=== PATIENT | female | born 1955 | race Caucasian/White ===

== ENCOUNTER 2020-12-04 05:48 | Inpatient (IN) | payer MEDICAID ==
[~2020-12-04] VITALS: Ht 160 cm; Wt 84.8 kg
--- NOTE | 2020-12-04 02:40 | NUR ---
Patient from [facility]- direct admit- I have received report from Rene LOVE and had the opportunity to ask questions and assume patient care. Addendum: 12/04/20 at 0617 by Zina Carranza RN pt coming via ambulance and estimated arrival is 3 hours from now at 0240
--- NOTE | 2020-12-04 05:55 | NUR ---
Pt arrived by EMS, transferred to the bed with slide board. Pt is alert to self, place, and situation. She is in no acute distress. She is on 15L via NRB at 91%. Vitals within normal limits; refer to vitals section. Paged Hospitalist consumer electronics merchandiser regarding orders due to pt being a direct admit. Pt is currently resting comfortably in bed with call light in reach.
[2020-12-04 06:00] VITALS: BP 122/67
--- NOTE | 2020-12-04 06:29 | NUR ---
Problems reprioritized. Patient report given, questions answered & plan of care reviewed with Norris LOVE.
[2020-12-04] MEDS ORDERED: PERFLUTREN PROTEIN-A MICROSPHR (Optison) 0.22 MG/ML 3ML VIAL IV ONE (08:30)
[2020-12-04] MEDS ORDERED: potassium Cl 20 mEq SR tablet PO PRN ×2 (08:30)
[2020-12-04] MEDS ORDERED: potassium Cl 40MEQ/1/2NS 520ml 520 ML IV PRN ×2 (08:30)
[2020-12-04] MEDS ORDERED: morphine 2 MG/ML inj. syringe IV PRN ×2 (08:30)
[2020-12-04] MEDS ORDERED: magnesium 2GM in 50ml NS 50 ML IV PRN (08:30)
[2020-12-04] MEDS ORDERED: mag hydrox/Alum hydrox/simeth 30ml oral suspension PO PRN (08:30)
[2020-12-04] MEDS ORDERED: bisacodyl 10mg suppository rectal RC PRN (08:30)
[2020-12-04] MEDS ORDERED: ondansetron/PF 4mg/2ml inj IV PRN (08:30)
[2020-12-04] MEDS ORDERED: heparin 10,000 units/1 ML INJ IV ONE ×2 (08:30→09:35)
[2020-12-04] MEDS ORDERED: magnesium 4gm in 100ml NS 100 ML IV PRN (08:30)
[2020-12-04 10:00] VITALS: BP 100/38
[2020-12-04 11:54] LABS: BASOPHILS % (AUTO) 0.1 % (0-1); EOSINOPHILS % (AUTO) 0 % (0-6); HEMATOCRIT 43.8 % (35.0-45.0); HEMOGLOBIN 14.1 g/dl (12.0-16.0); LYMPHOCYTES # (AUTO) 0.5 X10'3 (1.1-4.8); LYMPHOCYTES % (AUTO) 8.9 % (21-51); MEAN CORPUSCULAR HEMOGLOBIN 30.5 PG (27.0-31.0); MEAN CORPUSCULAR HGB CONC 32.2 g/dL (33.0-36.5); MEAN PLATELET VOLUME 8.4 FL (7.4-10.4); MONOCYTES # (AUTO) 0.3 X10'3 (0-0.9); MONOCYTES % (AUTO) 4.7 % (2-12); NEUTROPHILS # (AUTO) 5.2 X10'3 (1.8-7.7); NEUTROPHILS % (AUTO) 86.3 % (42-75); PLATELET COUNT 287 X10'3 (140-440); RED BLOOD COUNT 4.61 X10'6 (4.20-5.60); RED CELL DISTRIBUTION WIDTH 14.3 % (11.5-14.5); WHITE BLOOD COUNT 6.1 X10'3 (4.5-11.0)
[2020-12-04] MEDS: levoFLOXACIN-Levaquin 750MG/D5 150 ML IV SCH (12:19)
[2020-12-04] MEDS: heparin 25,000 UNIT/250ml bag 250 ML IV SCH (12:41)
[2020-12-04] MEDS: dexamethasone 4mg/ml inj IV SCH ×2 (12:42→19:45)
[2020-12-04] MEDS: normal saline 1000ml 1,000 ML IV SCH ×2 (12:44→18:30)
[2020-12-04 12:57] LABS: ALANINE AMINOTRANSFERASE 15 U/L (12-78); ALBUMIN 2.1 G/DL (3.4-5.0); ALBUMIN/GLOBULIN RATIO 0.5 (1.1-1.5); ALKALINE PHOSPHATASE 103 IU/L (46-116); ANION GAP 11 (8-16); ASPARTATE AMINO TRANSFERASE 16 U/L (10-37); BILIRUBIN,TOTAL 0.3 MG/DL (0.1-1.0); BLOOD UREA NITROGEN 12 MG/DL (7-18); BUN/CREATININE RATIO 17.1 (6.6-38.0); CALCIUM 8.1 MG/DL (8.5-10.1); CHLORIDE 109 MMOL/L (99-107); GLUCOSE 122 MG/DL (70-104); POTASSIUM 4.4 MMOL/L (3.5-5.1); SODIUM 144 MMOL/L (135-145); TOTAL CARBON DIOXIDE 24.1 MMOL/L (24-32); TOTAL PROTEIN 6.5 G/DL (6.4-8.2); eGFR 84 ML/MIN
[2020-12-04 13:02] LABS: TROPONIN I < 0.04 NG/ML (0.0-0.05)
[2020-12-04] MEDS ORDERED: LEVO75TA7 PO (13:33)
[2020-12-04] MEDS ORDERED: KETO5DRO11 EACHEYE (13:33)
[2020-12-04] MEDS ORDERED: AMIT-189 PO (13:33)
[2020-12-04] MEDS ORDERED: TOP100T PO (13:33)
[2020-12-04] MEDS ORDERED: FLUT16SP2 BOTHNARES (13:33)
[2020-12-04] MEDS ORDERED: ERGO500054 PO (13:33)
[2020-12-04] MEDS ORDERED: ACYC-128 PO (13:33)
[2020-12-04] MEDS ORDERED: GABA-530 PO (13:33)
[2020-12-04] MEDS ORDERED: PANT20TA18 PO (13:33)
[2020-12-04] MEDS ORDERED: AMIT100T61 PO (13:33)
[2020-12-04] MEDS ORDERED: ATEN25TA PO (13:33)
[2020-12-04] MEDS ORDERED: PROC10TA10 PO (13:33)
[2020-12-04] MEDS ORDERED: DIAZ5TAB5 PO (13:33)
[2020-12-04 14:00] VITALS: BP 105/45
[2020-12-04] MEDS: nicotine 21mg patch - 24 hr TD SCH (16:21)
[2020-12-04] MEDS ORDERED: proCHLORperazine 10mg tablet PO PRN (17:05)
[2020-12-04] MEDS ORDERED: gabapentin 100mg capsule PO PRN (17:05)
[2020-12-04 18:00] VITALS: BP 105/45
[2020-12-04] MEDS: docusate sod 100mg capsule PO SCH (19:46)
[2020-12-04] MEDS: lactobacillus rhamnosus 10,000 MMU CELLS/CAPSULE PO SCH (19:46)
[2020-12-04] MEDS: amitriptyline 50mg tablet PO SCH (19:48)
[2020-12-04] MEDS: K and/or MAG REPLACEMENT MC SCH (20:00)
[2020-12-04] MEDS: REMDESIVIR INJ 100 MG in normal saline 100ml IV soln 80 ML IV SCH (20:00)
[2020-12-04] MEDS ORDERED: non-formulary drug (Amitriptyline HCl 2 TAB) PO SCH (21:00)
[2020-12-04] MEDS: heparin 10,000 units/1 ML INJ IV PRN (21:29)
[2020-12-04 22:00] VITALS: BP 117/63
[2020-12-05] MEDS: heparin 25,000 UNIT/250ml bag 250 ML IV SCH ×2 (01:10→17:41)
[2020-12-05 02:01] VITALS: BP 112/65
[2020-12-05] MEDS: normal saline 1000ml 1,000 ML IV SCH ×2 (04:30→14:30)
[2020-12-05 04:59] LABS: BASOPHILS % (AUTO) 0.5 % (0-1); EOSINOPHILS % (AUTO) 0 % (0-6); HEMATOCRIT 43.6 % (35.0-45.0); HEMOGLOBIN 14.1 g/dl (12.0-16.0); LYMPHOCYTES # (AUTO) 0.7 X10'3 (1.1-4.8); LYMPHOCYTES % (AUTO) 7.8 % (21-51); MEAN CORPUSCULAR HEMOGLOBIN 30.4 PG (27.0-31.0); MEAN CORPUSCULAR HGB CONC 32.2 g/dL (33.0-36.5); MEAN CORPUSCULAR VOLUME 94.5 FL (78-98); MEAN PLATELET VOLUME 8.5 FL (7.4-10.4); MONOCYTES # (AUTO) 0.4 X10'3 (0-0.9); MONOCYTES % (AUTO) 4.2 % (2-12); NEUTROPHILS # (AUTO) 7.8 X10'3 (1.8-7.7); NEUTROPHILS % (AUTO) 87.5 % (42-75); PLATELET COUNT 322 X10'3 (140-440); RED BLOOD COUNT 4.61 X10'6 (4.20-5.60); RED CELL DISTRIBUTION WIDTH 14.4 % (11.5-14.5); WHITE BLOOD COUNT 8.9 X10'3 (4.5-11.0)
[2020-12-05 05:15] LABS: ALANINE AMINOTRANSFERASE 16 U/L (12-78); ALBUMIN/GLOBULIN RATIO 0.5 (1.1-1.5); ALKALINE PHOSPHATASE 97 IU/L (46-116); ANION GAP 11 (8-16); ASPARTATE AMINO TRANSFERASE 12 U/L (10-37); BILIRUBIN,TOTAL 0.2 MG/DL (0.1-1.0); BLOOD UREA NITROGEN 12 MG/DL (7-18); BUN/CREATININE RATIO 16.2 (6.6-38.0); C-REACTIVE PROTEIN 11.17 MG/DL (0.0-0.5); CALCIUM 8.2 MG/DL (8.5-10.1); CHLORIDE 111 MMOL/L (99-107); CREATININE 0.74 MG/DL (0.40-0.90); GLUCOSE 148 MG/DL (70-104); MAGNESIUM 2.5 MG/DL (1.5-2.4); SODIUM 147 MMOL/L (135-145); TOTAL PROTEIN 6.2 G/DL (6.4-8.2); eGFR 79 ML/MIN
[2020-12-05] MEDS: heparin 10,000 units/1 ML INJ IV PRN (05:50)
[2020-12-05 07:00] VITALS: BP 120/70
[2020-12-05] MEDS: dexamethasone 4mg/ml inj IV SCH ×2 (07:41→20:51)
[2020-12-05] MEDS: topiramate 100mg tablet PO SCH (07:41)
[2020-12-05] MEDS: docusate sod 100mg capsule PO SCH ×2 (07:41→20:50)
[2020-12-05] MEDS: lactobacillus rhamnosus 10,000 MMU CELLS/CAPSULE PO SCH ×2 (07:41→20:51)
[2020-12-05] MEDS: levoTHYROXINE 75mcg tablet PO SCH (07:41)
[2020-12-05] MEDS: pantoprazole 40mg Tablet.DR PO SCH (07:41)
[2020-12-05] MEDS: nicotine 21mg patch - 24 hr TD SCH (07:42)
[2020-12-05] MEDS: K and/or MAG REPLACEMENT MC SCH ×2 (08:00→20:00)
--- NOTE | 2020-12-05 08:03 | NUR ---
Malnutrition consult: Pt admitted w/ increasing SOB and transferred from another facility, noted to have Covid. Pt currently on EC7/Heart Healthy diet w/ 0% intake first meal though up to about 50% most recent third meal. Pt noted to be A&O x 1 and confused though able to feed self per documentation. No wounds or edema noted, no signs of muscle waisting per RN. At this time pt does not meet minimum criteria for malnutrition, will continue to monitor. Addendum: 12/05/20 at [address] Amended: Links added.
[2020-12-05 10:00] VITALS: BP 107/45
[2020-12-05] MEDS: fluticasone nasal spray 16GM bottle NS SCH (12:00)
[2020-12-05] MEDS: diazepam 5mg tablet PO PRN (13:18)
[2020-12-05] MEDS: acetaminophen 325mg tablet PO PRN (13:18)
[2020-12-05 14:00] VITALS: BP 112/53
[2020-12-05] MEDS: levoFLOXACIN-Levaquin 750MG/D5 150 ML IV SCH (14:00)
--- NOTE | 2020-12-05 16:56 | NUR ---
Pt rested comfortably throughout shift. Unable to obtain secondary IV access for patient after multiple attempts. MD made aware. IV abx changed to PO. Pt has L EJ that have Heparin infusing through.
[2020-12-05 18:00] VITALS: BP 125/99
--- NOTE | 2020-12-05 18:23 | NUR ---
Pt rested comfortably in room. Report provided to KATE Sabillon and Heparin gtt infusing at 2000 units/hr=20 ml/hr using the weight of 84.82 kg. Pt has therapeutic PTT and no rate adjustment needed throughout shift. Next PTT scheduled for 12/05/20 @ 18:30pm and RN is aware.
[2020-12-05 19:25] LABS: PARTIAL THROMBOPLASTIN TIME 111 SECONDS (22-32)
--- NOTE | 2020-12-05 19:30 | NUR ---
Notified MD of patient PTT level of 111 per protocol. Will continue to monitor.
[2020-12-05] MEDS: REMDESIVIR INJ 100 MG in normal saline 100ml IV soln 80 ML IV SCH (20:52)
[2020-12-05] MEDS: amitriptyline 50mg tablet PO SCH (21:25)
[2020-12-05 21:38] VITALS: BP 144/66
--- NOTE | 2020-12-05 23:09 | NUR ---
Multiple attempts to obtain PTT lab scheduled for 2129. Lab and dive supervisor not able to draw lab at this time. Will continue to attempt to draw labs.
[2020-12-06] MEDS: normal saline 1000ml 1,000 ML IV SCH (00:40)
[2020-12-06 02:00] VITALS: BP 148/71
--- NOTE | 2020-12-06 05:38 | NUR ---
PATIENT IN ROOM RESTING WITH EYES CLOSED AT THIS TIME. IVF INFUSING PER ORDER. VSS THROUGHOUT SHIFT. NO CURRENT COMPLAINTS OF DISCOMFORT AT THIS TIME. NO SIGNS OF DISTRESS NOTED. CALL LIGHT PLACED WITHIN REACH OF PATIENT. PATIENT INSTRUCTED TO CALL FOR ASSISTANCE. VITAL SIGNS AND ASSESSMENTS DOCUMENTED IN INTERVENTIONS. WILL CONTINUE TO MONITOR.
[2020-12-06 09:02] LABS: BASOPHILS % (AUTO) 0.3 % (0-1); EOSINOPHILS % (AUTO) 0.1 % (0-6); HEMOGLOBIN 12.9 g/dl (12.0-16.0); LYMPHOCYTES # (AUTO) 0.9 X10'3 (1.1-4.8); LYMPHOCYTES % (AUTO) 10.7 % (21-51); MEAN CORPUSCULAR HEMOGLOBIN 30.9 PG (27.0-31.0); MEAN CORPUSCULAR HGB CONC 33.2 g/dL (33.0-36.5); MEAN PLATELET VOLUME 8.8 FL (7.4-10.4); MONOCYTES # (AUTO) 0.5 X10'3 (0-0.9); MONOCYTES % (AUTO) 5.4 % (2-12); NEUTROPHILS # (AUTO) 7.4 X10'3 (1.8-7.7); NEUTROPHILS % (AUTO) 83.5 % (42-75); PLATELET COUNT 365 X10'3 (140-440); RED BLOOD COUNT 4.19 X10'6 (4.20-5.60); RED CELL DISTRIBUTION WIDTH 14.2 % (11.5-14.5); WHITE BLOOD COUNT 8.9 X10'3 (4.5-11.0)
[2020-12-06] MEDS: nicotine 21mg patch - 24 hr TD SCH (09:29)
[2020-12-06] MEDS: levoTHYROXINE 75mcg tablet PO SCH (09:29)
[2020-12-06] MEDS: docusate sod 100mg capsule PO SCH ×2 (09:29→20:07)
[2020-12-06] MEDS: topiramate 100mg tablet PO SCH (09:29)
[2020-12-06] MEDS: lactobacillus rhamnosus 10,000 MMU CELLS/CAPSULE PO SCH ×2 (09:29→20:07)
[2020-12-06] MEDS: atenolol 25mg tablet PO PRN (09:29)
[2020-12-06] MEDS: pantoprazole 40mg Tablet.DR PO SCH (09:29)
[2020-12-06] MEDS: dexamethasone 4mg/ml inj IV SCH ×2 (09:30→20:07)
[2020-12-06] MEDS: fluticasone nasal spray 16GM bottle NS SCH (09:30)
[2020-12-06 09:43] LABS: ALANINE AMINOTRANSFERASE 12 U/L (12-78); ALBUMIN 1.9 G/DL (3.4-5.0); ALBUMIN/GLOBULIN RATIO 0.5 (1.1-1.5); ALKALINE PHOSPHATASE 83 IU/L (46-116); ANION GAP 8 (8-16); ASPARTATE AMINO TRANSFERASE 15 U/L (10-37); BILIRUBIN,TOTAL 0.2 MG/DL (0.1-1.0); BLOOD UREA NITROGEN 15 MG/DL (7-18); BUN/CREATININE RATIO 22.1 (6.6-38.0); C-REACTIVE PROTEIN 5.21 MG/DL (0.0-0.5); CHLORIDE 112 MMOL/L (99-107); CREATININE 0.68 MG/DL (0.40-0.90); GLUCOSE 110 MG/DL (70-104); MAGNESIUM 2.5 MG/DL (1.5-2.4); POTASSIUM 4.2 MMOL/L (3.5-5.1); SODIUM 147 MMOL/L (135-145); TOTAL CARBON DIOXIDE 26.7 MMOL/L (24-32); TOTAL PROTEIN 5.6 G/DL (6.4-8.2); eGFR 87 ML/MIN
[2020-12-06 10:00] VITALS: BP 121/70
[2020-12-06] MEDS: K and/or MAG REPLACEMENT MC SCH ×3 (12:00→22:24)
[2020-12-06] MEDS: levoFLOXACIN 750MG TABLET PO SCH (12:25)
[2020-12-06] MEDS: heparin 25,000 UNIT/250ml bag 250 ML IV SCH ×2 (12:31→19:38)
[2020-12-06 17:30] LABS: PARTIAL THROMBOPLASTIN TIME 106 SECONDS (22-32)
[2020-12-06 18:00] VITALS: BP 120/63
[2020-12-06] MEDS: REMDESIVIR INJ 100 MG in normal saline 100ml IV soln 80 ML IV SCH (20:07)
[2020-12-06] MEDS: amitriptyline 50mg tablet PO SCH (20:07)
[2020-12-06 22:00] VITALS: BP 119/79
--- NOTE | 2020-12-06 22:29 | NUR ---
The ptt was 91 so the heparin was turned off for an hour then we will restart her heparin in an hour and decrease it as ordered per protocol.
[2020-12-07 02:00] VITALS: BP 131/71
[2020-12-07] MEDS: heparin 25,000 UNIT/250ml bag 250 ML IV SCH (03:10)
[2020-12-07 08:19] LABS: BASOPHILS % (AUTO) 0.3 % (0-1); EOSINOPHILS % (AUTO) 0.1 % (0-6); HEMATOCRIT 42.5 % (35.0-45.0); HEMOGLOBIN 14.1 g/dl (12.0-16.0); LYMPHOCYTES # (AUTO) 0.9 X10'3 (1.1-4.8); LYMPHOCYTES % (AUTO) 10.8 % (21-51); MEAN CORPUSCULAR HEMOGLOBIN 31.1 PG (27.0-31.0); MEAN CORPUSCULAR HGB CONC 33.2 g/dL (33.0-36.5); MEAN CORPUSCULAR VOLUME 93.7 FL (78-98); MONOCYTES # (AUTO) 0.5 X10'3 (0-0.9); MONOCYTES % (AUTO) 6.2 % (2-12); NEUTROPHILS # (AUTO) 6.8 X10'3 (1.8-7.7); NEUTROPHILS % (AUTO) 82.6 % (42-75); PLATELET COUNT 365 X10'3 (140-440); RED BLOOD COUNT 4.54 X10'6 (4.20-5.60); RED CELL DISTRIBUTION WIDTH 14.7 % (11.5-14.5); WHITE BLOOD COUNT 8.3 X10'3 (4.5-11.0)
[2020-12-07 08:53] LABS: ASPARTATE AMINO TRANSFERASE 19 U/L (10-37); BILIRUBIN,TOTAL 0.2 MG/DL (0.1-1.0); BLOOD UREA NITROGEN 15 MG/DL (7-18); BUN/CREATININE RATIO 19.2 (6.6-38.0); C-REACTIVE PROTEIN 4.19 MG/DL (0.0-0.5); CHLORIDE 107 MMOL/L (99-107); CREATININE 0.78 MG/DL (0.40-0.90); GLUCOSE 111 MG/DL (70-104); POTASSIUM 4.3 MMOL/L (3.5-5.1); eGFR 74 ML/MIN
[2020-12-07 08:54] LABS: ALANINE AMINOTRANSFERASE 15 U/L (12-78); ALBUMIN/GLOBULIN RATIO 0.5 (1.1-1.5); ALKALINE PHOSPHATASE 103 IU/L (46-116); ANION GAP 11 (8-16); CALCIUM 8.2 MG/DL (8.5-10.1); MAGNESIUM 2.4 MG/DL (1.5-2.4); SODIUM 141 MMOL/L (135-145); TOTAL CARBON DIOXIDE 23.4 MMOL/L (24-32)
[2020-12-07] MEDS: dexamethasone 4mg/ml inj IV SCH ×2 (09:23→20:13)
[2020-12-07] MEDS: nicotine 21mg patch - 24 hr TD SCH (09:24)
[2020-12-07] MEDS: topiramate 100mg tablet PO SCH (09:24)
[2020-12-07] MEDS: docusate sod 100mg capsule PO SCH ×2 (09:24→20:09)
[2020-12-07] MEDS: pantoprazole 40mg Tablet.DR PO SCH (09:24)
[2020-12-07] MEDS: levoTHYROXINE 75mcg tablet PO SCH (09:24)
[2020-12-07] MEDS: lactobacillus rhamnosus 10,000 MMU CELLS/CAPSULE PO SCH ×2 (09:25→20:09)
[2020-12-07] MEDS: K and/or MAG REPLACEMENT MC SCH ×2 (09:30→20:00)
[2020-12-07] MEDS: fluticasone nasal spray 16GM bottle NS SCH (09:30)
[2020-12-07 10:00] VITALS: BP 124/62
[2020-12-07] MEDS: levoFLOXACIN 750MG TABLET PO SCH (12:05)
[2020-12-07 13:13] LABS: PARTIAL THROMBOPLASTIN TIME 65 SECONDS (22-32)
[2020-12-07 18:00] VITALS: BP 119/60
[2020-12-07] MEDS: REMDESIVIR INJ 100 MG in normal saline 100ml IV soln 80 ML IV SCH (20:08)
[2020-12-07] MEDS: enoxaparin 80mg/0.8ml syringe SUBCUT SCH (20:23)
[2020-12-07] MEDS: amitriptyline 50mg tablet PO SCH (20:26)
--- NOTE | 2020-12-07 23:00 | NUR ---
Eye drops not available; pt instructed to ask her family member to bring her own medication from home. Pt verbalized understanding
[2020-12-07 23:50] VITALS: BP 111/64
[2020-12-08 02:00] VITALS: BP 125/76
--- NOTE | 2020-12-08 06:23 | NUR ---
Problems reprioritized. Patient report given, questions answered & plan of care reviewed with Ms. Pisano.
[2020-12-08 09:12] LABS: BASOPHILS % (AUTO) 0.4 % (0-1); EOSINOPHILS % (AUTO) 0.1 % (0-6); HEMATOCRIT 49.3 % (35.0-45.0); HEMOGLOBIN 16.2 g/dl (12.0-16.0); LYMPHOCYTES # (AUTO) 1.2 X10'3 (1.1-4.8); LYMPHOCYTES % (AUTO) 14.6 % (21-51); MEAN CORPUSCULAR HEMOGLOBIN 30.7 PG (27.0-31.0); MEAN CORPUSCULAR HGB CONC 32.8 g/dL (33.0-36.5); MEAN CORPUSCULAR VOLUME 93.6 FL (78-98); MEAN PLATELET VOLUME 8.7 FL (7.4-10.4); MONOCYTES # (AUTO) 0.4 X10'3 (0-0.9); MONOCYTES % (AUTO) 5.1 % (2-12); NEUTROPHILS # (AUTO) 6.6 X10'3 (1.8-7.7); NEUTROPHILS % (AUTO) 79.8 % (42-75); PLATELET COUNT 304 X10'3 (140-440); RED BLOOD COUNT 5.27 X10'6 (4.20-5.60); RED CELL DISTRIBUTION WIDTH 14.9 % (11.5-14.5); WHITE BLOOD COUNT 8.3 X10'3 (4.5-11.0)
--- NOTE | 2020-12-08 09:13 | NUR ---
Initial: Pt admitted w/ increasing SOB and noted to have Covid per EMR. Pt currently w/ 15L oxygen requirement. Pt able to eat moderately well on EC7/Heart Healthy diet, avg intake 58% by 9 meals meeting minimum nutrient needs at this time. No BM documented; TC to RN though unavailable; pt receiving routine colace. Recommend additional bowel care if pt has not had BM since admission. Pt may also benefit from diet liberalization to Regular if MD agreeable as no significant cardiac hx. Will continue to monitor. Recs: 1. Liberalize to Regular diet if MD agreeable 2. Routine bowel care 3. Scaled wt this admit; subsequent weekly wts Addendum: 12/08/20 at [address] Amended: Links added.
[2020-12-08 09:22] LABS: ALANINE AMINOTRANSFERASE 19 U/L (12-78); ALBUMIN 2.3 G/DL (3.4-5.0); ALBUMIN/GLOBULIN RATIO 0.5 (1.1-1.5); ALKALINE PHOSPHATASE 118 IU/L (46-116); ANION GAP 9 (8-16); ASPARTATE AMINO TRANSFERASE 21 U/L (10-37); BILIRUBIN,TOTAL 0.2 MG/DL (0.1-1.0); BLOOD UREA NITROGEN 18 MG/DL (7-18); BUN/CREATININE RATIO 21.4 (6.6-38.0); CALCIUM 9.1 MG/DL (8.5-10.1); CHLORIDE 108 MMOL/L (99-107); CREATININE 0.84 MG/DL (0.40-0.90); GLUCOSE 110 MG/DL (70-104); MAGNESIUM 2.5 MG/DL (1.5-2.4); POTASSIUM 4.9 MMOL/L (3.5-5.1); SODIUM 142 MMOL/L (135-145); TOTAL CARBON DIOXIDE 24.6 MMOL/L (24-32); TOTAL PROTEIN 6.6 G/DL (6.4-8.2); eGFR 68 ML/MIN
[2020-12-08 09:24] LABS: C-REACTIVE PROTEIN 3.11 MG/DL (0.0-0.5)
[2020-12-08] MEDS: topiramate 100mg tablet PO SCH (09:46)
[2020-12-08] MEDS: pantoprazole 40mg Tablet.DR PO SCH (09:47)
[2020-12-08] MEDS: levoTHYROXINE 75mcg tablet PO SCH (09:47)
[2020-12-08] MEDS: lactobacillus rhamnosus 10,000 MMU CELLS/CAPSULE PO SCH ×2 (09:47→19:43)
[2020-12-08] MEDS: atenolol 25mg tablet PO PRN (09:47)
[2020-12-08] MEDS: docusate sod 100mg capsule PO SCH ×2 (09:47→19:43)
[2020-12-08] MEDS: dexamethasone 4mg/ml inj IV SCH ×2 (09:48→19:44)
[2020-12-08] MEDS: nicotine 21mg patch - 24 hr TD SCH (09:48)
[2020-12-08] MEDS: enoxaparin 80mg/0.8ml syringe SUBCUT SCH ×2 (09:48→19:45)
[2020-12-08 10:00] VITALS: BP 112/65
[2020-12-08] MEDS: fluticasone nasal spray 16GM bottle NS SCH (11:00)
[2020-12-08] MEDS: K and/or MAG REPLACEMENT MC SCH ×2 (11:00→20:00)
[2020-12-08] MEDS: levoFLOXACIN 750MG TABLET PO SCH (13:36)
[2020-12-08 18:00] VITALS: BP 114/66
--- NOTE | 2020-12-08 18:30 | NUR ---
Patient in room ORTHO 4007. I have received report from KATE Garcia and had the opportunity to ask questions and assume patient care. Patient laying in bed, no obvious distress. She just finished dinner and has no complaints.
[2020-12-08] MEDS: amitriptyline 50mg tablet PO SCH (19:44)
[2020-12-08 22:00] VITALS: BP 110/63
[2020-12-08] MEDS: acetaminophen 325mg tablet PO PRN (22:08)
[2020-12-09 05:00] VITALS: BP 119/71
--- NOTE | 2020-12-09 06:08 | NUR ---
Problems reprioritized. Patient report given, questions answered & plan of care reviewed with KATE Garcia.
[2020-12-09 07:15] LABS: BASOPHILS % (AUTO) 0.4 % (0-1); EOSINOPHILS % (AUTO) 0.1 % (0-6); HEMATOCRIT 46.8 % (35.0-45.0); HEMOGLOBIN 15.4 g/dl (12.0-16.0); LYMPHOCYTES # (AUTO) 0.9 X10'3 (1.1-4.8); LYMPHOCYTES % (AUTO) 9.8 % (21-51); MEAN CORPUSCULAR HEMOGLOBIN 30.8 PG (27.0-31.0); MEAN CORPUSCULAR HGB CONC 32.8 g/dL (33.0-36.5); MEAN CORPUSCULAR VOLUME 93.9 FL (78-98); MEAN PLATELET VOLUME 8.7 FL (7.4-10.4); MONOCYTES # (AUTO) 0.6 X10'3 (0-0.9); MONOCYTES % (AUTO) 6.6 % (2-12); NEUTROPHILS # (AUTO) 7.3 X10'3 (1.8-7.7); NEUTROPHILS % (AUTO) 83.1 % (42-75); PLATELET COUNT 383 X10'3 (140-440); RED BLOOD COUNT 4.98 X10'6 (4.20-5.60); RED CELL DISTRIBUTION WIDTH 14.8 % (11.5-14.5); WHITE BLOOD COUNT 8.8 X10'3 (4.5-11.0)
[2020-12-09] MEDS: nicotine 21mg patch - 24 hr TD SCH (07:45)
[2020-12-09] MEDS: lactobacillus rhamnosus 10,000 MMU CELLS/CAPSULE PO SCH ×2 (07:45→20:17)
[2020-12-09] MEDS: docusate sod 100mg capsule PO SCH ×2 (07:45→20:17)
[2020-12-09] MEDS: pantoprazole 40mg Tablet.DR PO SCH (07:45)
[2020-12-09] MEDS: topiramate 100mg tablet PO SCH (07:45)
[2020-12-09] MEDS: enoxaparin 80mg/0.8ml syringe SUBCUT SCH ×2 (07:46→20:16)
[2020-12-09] MEDS: dexamethasone 4mg/ml inj IV SCH (07:46)
[2020-12-09] MEDS: levoTHYROXINE 75mcg tablet PO SCH (07:46)
[2020-12-09] MEDS: fluticasone nasal spray 16GM bottle NS SCH (07:47)
[2020-12-09 07:57] LABS: ALANINE AMINOTRANSFERASE 17 U/L (12-78); ALBUMIN 2.2 G/DL (3.4-5.0); ALBUMIN/GLOBULIN RATIO 0.5 (1.1-1.5); ALKALINE PHOSPHATASE 111 IU/L (46-116); ANION GAP 11 (8-16); ASPARTATE AMINO TRANSFERASE 17 U/L (10-37); BILIRUBIN,TOTAL 0.3 MG/DL (0.1-1.0); BLOOD UREA NITROGEN 18 MG/DL (7-18); BUN/CREATININE RATIO 23.4 (6.6-38.0); C-REACTIVE PROTEIN 2.09 MG/DL (0.0-0.5); CALCIUM 9.3 MG/DL (8.5-10.1); CHLORIDE 108 MMOL/L (99-107); CREATININE 0.77 MG/DL (0.40-0.90); GLUCOSE 107 MG/DL (70-104); MAGNESIUM 2.3 MG/DL (1.5-2.4); POTASSIUM 4.5 MMOL/L (3.5-5.1); SODIUM 145 MMOL/L (135-145); TOTAL CARBON DIOXIDE 26.3 MMOL/L (24-32); TOTAL PROTEIN 6.4 G/DL (6.4-8.2); eGFR 75 ML/MIN
[2020-12-09] MEDS: K and/or MAG REPLACEMENT MC SCH ×2 (09:55→20:00)
[2020-12-09 10:53] VITALS: BP 103/64
[2020-12-09] MEDS: levoFLOXACIN 750MG TABLET PO SCH (10:55)
[2020-12-09 15:00] VITALS: BP 128/64
[2020-12-09 20:00] VITALS: BP 114/76
[2020-12-09] MEDS: amitriptyline 50mg tablet PO SCH (20:17)
[2020-12-09] MEDS: acetaminophen 325mg tablet PO PRN (21:14)
[2020-12-09 22:00] VITALS: BP 136/65
[2020-12-10 02:00] VITALS: BP 100/56
--- NOTE | 2020-12-10 02:17 | NUR ---
Received report from trevor Wagner.
--- NOTE | 2020-12-10 06:15 | NUR ---
Problems reprioritized. Patient report given, questions answered & plan of care reviewed with KATE AMADOR.
[2020-12-10 06:26] VITALS: BP 101/60
--- NOTE | 2020-12-10 06:26 | NUR ---
Patient in room ORTHO 4007. I have received report from Bernard LOVE and had the opportunity to ask questions and assume patient care.
[2020-12-10] MEDS ORDERED: dexamethasone 4mg/ml inj IV SCH (08:00)
[2020-12-10] MEDS: fluticasone nasal spray 16GM bottle NS SCH (08:00)
[2020-12-10] MEDS: K and/or MAG REPLACEMENT MC SCH ×2 (08:00→20:00)
[2020-12-10] MEDS: dexamethasone 6 MG in NS 50ml IV soln IV SCH ×2 (08:00→08:07)
[2020-12-10] MEDS: nicotine 21mg patch - 24 hr TD SCH (08:08)
[2020-12-10] MEDS: topiramate 100mg tablet PO SCH (08:08)
[2020-12-10] MEDS: enoxaparin 80mg/0.8ml syringe SUBCUT SCH ×2 (08:08→21:42)
[2020-12-10] MEDS: lactobacillus rhamnosus 10,000 MMU CELLS/CAPSULE PO SCH ×2 (08:08→21:41)
[2020-12-10] MEDS: docusate sod 100mg capsule PO SCH ×2 (08:08→21:41)
[2020-12-10] MEDS: pantoprazole 40mg Tablet.DR PO SCH (08:08)
[2020-12-10] MEDS: levoTHYROXINE 75mcg tablet PO SCH (08:08)
[2020-12-10 08:41] LABS: C-REACTIVE PROTEIN 1.12 MG/DL (0.0-0.5); MAGNESIUM 2.4 MG/DL (1.5-2.4)
[2020-12-10 11:04] VITALS: BP 131/52
--- NOTE | 2020-12-10 11:51 | NUR ---
PAGER ID: [phone] MESSAGE: [id number] Jerod name elva phone number [phone] Addendum: 12/10/20 at 1251 by Dorina Vera RN wrong patient
[2020-12-10] MEDS: acetaminophen 325mg tablet PO PRN (12:57)
[2020-12-10 14:50] VITALS: BP 104/57
[2020-12-10 16:03] VITALS: BP 104/57
--- NOTE | 2020-12-10 18:45 | NUR ---
Problems reprioritized. Patient report given, questions answered & plan of care reviewed with Taylor LOVE.
[2020-12-10] MEDS: amitriptyline 50mg tablet PO SCH (21:43)
[2020-12-10 22:00] VITALS: BP 107/50
[2020-12-11] VITALS (7 sets, daily range): BP systolic 102–127; BP diastolic 31–69
--- NOTE | 2020-12-11 06:22 | NUR ---
Patient in room ORTHO 4007. I have received report from Sumit and had the opportunity to ask questions and assume patient care.
[2020-12-11 07:50] LABS: C-REACTIVE PROTEIN 2.01 MG/DL (0.0-0.5); MAGNESIUM 2.3 MG/DL (1.5-2.4)
[2020-12-11] MEDS: dexamethasone 6 MG in NS 50ml IV soln IV SCH ×2 (08:00→08:01)
[2020-12-11] MEDS: K and/or MAG REPLACEMENT MC SCH ×2 (08:00→20:00)
[2020-12-11] MEDS: diazepam 5mg tablet PO PRN ×2 (08:02→20:35)
[2020-12-11] MEDS: enoxaparin 80mg/0.8ml syringe SUBCUT SCH (08:02)
[2020-12-11] MEDS: lactobacillus rhamnosus 10,000 MMU CELLS/CAPSULE PO SCH ×2 (08:02→20:26)
[2020-12-11] MEDS: nicotine 21mg patch - 24 hr TD SCH (08:02)
[2020-12-11] MEDS: topiramate 100mg tablet PO SCH (08:02)
[2020-12-11] MEDS: fluticasone nasal spray 16GM bottle NS SCH (08:02)
[2020-12-11] MEDS: docusate sod 100mg capsule PO SCH ×2 (08:02→20:26)
[2020-12-11] MEDS: pantoprazole 40mg Tablet.DR PO SCH (08:02)
[2020-12-11] MEDS: levoTHYROXINE 75mcg tablet PO SCH (08:03)
[2020-12-11] MEDS: acetaminophen 325mg tablet PO PRN (08:26)
--- NOTE | 2020-12-11 08:40 | NUR ---
PAGER ID: [phone] MESSAGE: [id number], Lila, 02 on 5 liters was 83%, i have her back up to about 12 right now and she is only 88%, tachycardic this morning 116. Coughed up small amount of madhuri red blood. [id number]
[2020-12-11] MEDS ORDERED: salt irrigation nasal spray 45 ML SPRAY NS PRN (09:50)
[2020-12-11] MEDS ORDERED: magnesium hydroxide 30ml (MOM) UD suspension PO ONE (10:15)
[2020-12-11 10:18] LABS: BASOPHILS % (AUTO) 0.4 % (0-1); EOSINOPHILS # (AUTO) 0.1 X10'3 (0-0.9); EOSINOPHILS % (AUTO) 0.9 % (0-6); HEMATOCRIT 46.1 % (35.0-45.0); LYMPHOCYTES # (AUTO) 0.9 X10'3 (1.1-4.8); MEAN CORPUSCULAR HEMOGLOBIN 30.4 PG (27.0-31.0); MEAN CORPUSCULAR HGB CONC 32.5 g/dL (33.0-36.5); MEAN CORPUSCULAR VOLUME 93.4 FL (78-98); MEAN PLATELET VOLUME 8.7 FL (7.4-10.4); MONOCYTES # (AUTO) 0.9 X10'3 (0-0.9); MONOCYTES % (AUTO) 7.9 % (2-12); NEUTROPHILS % (AUTO) 82.8 % (42-75); PLATELET COUNT 358 X10'3 (140-440); RED BLOOD COUNT 4.94 X10'6 (4.20-5.60); WHITE BLOOD COUNT 10.9 X10'3 (4.5-11.0)
[2020-12-11 10:34] LABS: D-DIMER 4.59 MG/L FEU (0-0.50)
[2020-12-11 10:48] LABS: ALANINE AMINOTRANSFERASE 29 U/L (12-78); ALBUMIN 2.3 G/DL (3.4-5.0); ALBUMIN/GLOBULIN RATIO 0.6 (1.1-1.5); ALKALINE PHOSPHATASE 106 IU/L (46-116); ANION GAP 10 (8-16); ASPARTATE AMINO TRANSFERASE 24 U/L (10-37); BILIRUBIN,TOTAL 0.3 MG/DL (0.1-1.0); BLOOD UREA NITROGEN 21 MG/DL (7-18); BUN/CREATININE RATIO 24.1 (6.6-38.0); CALCIUM 8.9 MG/DL (8.5-10.1); CHLORIDE 105 MMOL/L (99-107); CREATININE 0.87 MG/DL (0.40-0.90); GLUCOSE 122 MG/DL (70-104); SODIUM 141 MMOL/L (135-145); TOTAL CARBON DIOXIDE 26.5 MMOL/L (24-32); TOTAL PROTEIN 6.3 G/DL (6.4-8.2); eGFR 65 ML/MIN
--- NOTE | 2020-12-11 15:12 | NUR ---
Attempted to put patient on venturi mask after hospitalist came and put nasal cannula in mouth as her oxygen saturation was 85%, o2 on venturi mask at 8 liters was only 83%. Placed on 10 liters nonrebreather and patient is 89% at this time.
--- NOTE | 2020-12-11 15:43 | NUR ---
91% on simple mask Addendum: 12/11/20 at 1543 by Dorina Vera RN on 8 liters.
--- NOTE | 2020-12-11 18:46 | NUR ---
Problems reprioritized. Patient report given, questions answered & plan of care reviewed with Greg LOVE.
[2020-12-11] MEDS: amitriptyline 50mg tablet PO SCH (20:26)
[2020-12-11] MEDS: apixaban 5mg tablet PO SCH (20:26)
[2020-12-12 02:00] VITALS: BP 110/65
--- NOTE | 2020-12-12 05:44 | NUR ---
Pt in bed no acute distress noted. Assisted with needs. Denies discomfort at this time. Safety and comfort measures maintained. Will continue to monitor.
[2020-12-12] MEDS: apixaban 5mg tablet PO SCH ×2 (07:28→21:10)
[2020-12-12] MEDS: topiramate 100mg tablet PO SCH (07:28)
[2020-12-12] MEDS: levoTHYROXINE 75mcg tablet PO SCH (07:28)
[2020-12-12] MEDS: dexamethasone 6 MG in NS 50ml IV soln IV SCH (07:28)
[2020-12-12] MEDS: lactobacillus rhamnosus 10,000 MMU CELLS/CAPSULE PO SCH ×2 (07:28→21:11)
[2020-12-12] MEDS: pantoprazole 40mg Tablet.DR PO SCH (07:28)
[2020-12-12] MEDS: fluticasone nasal spray 16GM bottle NS SCH (07:29)
[2020-12-12] MEDS: docusate sod 100mg capsule PO SCH ×2 (07:29→21:10)
[2020-12-12] MEDS: nicotine 21mg patch - 24 hr TD SCH (07:29)
[2020-12-12] MEDS: diazepam 5mg tablet PO PRN ×2 (07:58→21:09)
[2020-12-12 09:56] VITALS: BP 133/54
[2020-12-12] MEDS: K and/or MAG REPLACEMENT MC SCH ×2 (11:00→20:00)
--- NOTE | 2020-12-12 17:41 | NUR ---
pt rested comfortably in room throughout shift. Pt has not had a BM since admission, pt denies any abd discomfort and hypoactive bowel sounds noted on assessment. MD made aware and PRN medications and prune juice provided. Pt refused PRN suppository and states that she "usually doesn't move her bowels for days." Will continue to monitor patient.
[2020-12-12 18:00] VITALS: BP 115/58
--- NOTE | 2020-12-12 18:10 | NUR ---
Patient in room ORTHO 4007. I have received report from KATE Pisano and had the opportunity to ask questions and assume patient care.
[2020-12-12] MEDS: amitriptyline 50mg tablet PO SCH (21:09)
[2020-12-12 22:00] VITALS: BP 141/72
[2020-12-13 02:00] VITALS: BP 108/68
--- NOTE | 2020-12-13 05:45 | NUR ---
Patient had a kristal sleep, prune juice was given last night. No acute distress noted. Safety measures and comfort maintained.
--- NOTE | 2020-12-13 06:10 | NUR ---
Problems reprioritized. Patient report given, questions answered & plan of care reviewed with KATE Pisano.
[2020-12-13] MEDS: dexamethasone 6 MG in NS 50ml IV soln IV SCH (08:24)
[2020-12-13] MEDS: fluticasone nasal spray 16GM bottle NS SCH (08:24)
[2020-12-13] MEDS: nicotine 21mg patch - 24 hr TD SCH (08:24)
[2020-12-13] MEDS: levoTHYROXINE 75mcg tablet PO SCH (08:25)
[2020-12-13] MEDS: pantoprazole 40mg Tablet.DR PO SCH (08:25)
[2020-12-13] MEDS: topiramate 100mg tablet PO SCH (08:25)
[2020-12-13] MEDS: lactobacillus rhamnosus 10,000 MMU CELLS/CAPSULE PO SCH ×2 (08:25→20:50)
[2020-12-13] MEDS: docusate sod 100mg capsule PO SCH ×2 (08:25→20:50)
[2020-12-13] MEDS: apixaban 5mg tablet PO SCH ×2 (08:28→20:50)
[2020-12-13] MEDS: diazepam 5mg tablet PO PRN ×2 (08:28→21:10)
[2020-12-13 10:00] VITALS: BP 107/56
[2020-12-13] MEDS: K and/or MAG REPLACEMENT MC SCH ×2 (11:00→20:00)
[2020-12-13 14:00] VITALS: BP 100/51
--- NOTE | 2020-12-13 16:12 | NUR ---
Reassessment: Pt PO 75-100% avg EC7/heart healthy diet meeting needs. Noted LBM 12/04 9 days constipation receiving routine colace. GENESIS paged MD regarding additional bowel care if agreeable. Will continue to monitor. Recs: 1. Liberalize to Regular diet if MD agreeable 2. Routine bowel care; 9 days constipation 3. Scaled wt this admit; subsequent weekly wts Addendum: 12/13/20 at [address] Amended: Links added.
[2020-12-13 18:00] VITALS: BP 112/46
[2020-12-13] MEDS: amitriptyline 50mg tablet PO SCH (21:00)
[2020-12-13 22:00] VITALS: BP 110/53
[2020-12-13] MEDS: acetaminophen 325mg tablet PO PRN (22:13)
[2020-12-14 02:00] VITALS: BP 105/55
[2020-12-14 06:00] VITALS: BP 106/53
--- NOTE | 2020-12-14 06:27 | NUR ---
Problems reprioritized. Patient report given, questions answered & plan of care reviewed with RICH LOVE.
[2020-12-14] MEDS: nicotine 21mg patch - 24 hr TD SCH (07:43)
[2020-12-14] MEDS: topiramate 100mg tablet PO SCH (07:43)
[2020-12-14] MEDS: apixaban 5mg tablet PO SCH (07:43)
[2020-12-14] MEDS: dexamethasone 6 MG in NS 50ml IV soln IV SCH (07:43)
[2020-12-14] MEDS: docusate sod 100mg capsule PO SCH (07:44)
[2020-12-14] MEDS: pantoprazole 40mg Tablet.DR PO SCH (07:44)
[2020-12-14] MEDS: levoTHYROXINE 75mcg tablet PO SCH (07:44)
[2020-12-14] MEDS ORDERED: DEC4T PO (07:44)
[2020-12-14] MEDS ORDERED: APIX5TAB3 PO (07:44)
[2020-12-14] MEDS: lactobacillus rhamnosus 10,000 MMU CELLS/CAPSULE PO SCH (07:44)
[2020-12-14] MEDS: fluticasone nasal spray 16GM bottle NS SCH (07:45)
[2020-12-14] MEDS: K and/or MAG REPLACEMENT MC SCH (08:00)
[2020-12-14 10:00] VITALS: BP 115/48
--- NOTE | 2020-12-14 11:25 | NUR ---
O2 Sat at rest on room air:__86_% If below 89%: Recovery O2 Sat at rest on __3 LPM:__91%:___% via_NC (mask/nasal cannula, etc..) No further documentation is necessary. If O2 Sat did not drop below 89% on room air,ambulate patient on room air. O2 Sat while ambulating on room air:___% Recovery O2 Sat while ambulating on ___LPM:___% No further documentation is necessary. If patient does not drop below 89% while ambulating, he/she does not qualify for home O2.
--- NOTE | 2020-12-14 13:11 | NUR ---
PT MEDICALLY CLEARED AND DISCHARGED HOME. SHE IS CURRENTLY AWAITING HOME O2 AND RIDE HOME FROM FACILITY [facility]. IV ACCESS AND PRIMARY THERAPIST REMOVED FROM PATIENT. PT EXPLAINED AND PROVIDED FULL DISCHARGE INSTRUCTIONS AND PROVIDED PAPER COPIES OF NEW PRESCRIPTIONS. NEW PRESCRIPTIONS WERE EXPLAINED AND COPIES OF EACH WAS PLACED IN PATIENTS CHART. WILL CONTINUE TO MONITOR PATIENT UNTIL PHYSICALLY LEAVING HOSPITAL. Addendum: 12/14/20 at 1736 by Norris Ovalle RN PT LEFT BUILDING AT APPROX 1715 WITH FAMILY. O2 CONTAINERS ARE ON HAND AND PT EDUCATED ON PROPER USE OF HOME 02. PT WHEELED OUT IN WHEELCHAIR TO PRIVATE VEHICLE WITH FAMILY.
[2020-12-14 14:00] VITALS: BP 104/58
[2020-12-14] MEDS ORDERED: dexamethasone inj 6 MG in dextrose 5%-water 100 ML IV SCH (15:08)
[2020-12-18] MEDS ORDERED: apixaban 5mg tablet PO SCH (20:00)
== END 2020-12-14 17:23 | disposition home or self-care (01) | DRG 137 ==
LOC: UNDOADMIN 05:49 → ORTHO 4S 05:49
PROVIDERS: ADMIT Family Medicine; ATTEND Internal Medicine
PROC: XW033E5 Introduction of Remdesivir Anti-infective into Peripheral Vein, Percutaneous Approach, New Technology Group 5 (ICD-10-PCS; principal; 2020-12-04)
PROC: 5A0945A Assistance with Respiratory Ventilation, 24-96 Consecutive Hours, High Flow/Velocity Cannula (ICD-10-PCS; 2020-12-04)
PROC: 5A0935A Assistance with Respiratory Ventilation, Less than 24 Consecutive Hours, High Flow/Velocity Cannula (ICD-10-PCS; 2020-12-06)
PROC: 5A0945A Assistance with Respiratory Ventilation, 24-96 Consecutive Hours, High Flow/Velocity Cannula (ICD-10-PCS; 2020-12-08)
PROC: 5A0935A Assistance with Respiratory Ventilation, Less than 24 Consecutive Hours, High Flow/Velocity Cannula (ICD-10-PCS; 2020-12-12)
DX: U07.1 COVID-19 (principal); I26.99 Other pulmonary embolism without acute cor pulmonale; J12.82 Pneumonia due to coronavirus disease 2019; J96.01 Acute respiratory failure with hypoxia; F32.A Depression, unspecified; F41.9 Anxiety disorder, unspecified; K21.9 Gastro-esophageal reflux disease without esophagitis; R04.0 Epistaxis; I10 Essential (primary) hypertension; E03.9 Hypothyroidism, unspecified; E78.5 Hyperlipidemia, unspecified; F17.210 Nicotine dependence, cigarettes, uncomplicated; Z79.01 Long term (current) use of anticoagulants; Z79.899 Other long term (current) drug therapy; Z90.710 Acquired absence of both cervix and uterus; Z88.0 Allergy status to penicillin; Z88.2 Allergy status to sulfonamides; Z88.8 Allergy status to other drugs, medicaments and biological substances; Z90.49 Acquired absence of other specified parts of digestive tract; Z71.6 Tobacco abuse counseling
CPT/HCPCS: 36415; 76937; 80053; 83735; 84145; 84443; 84484; 85025; 85379; 85610; 85730; 86140; 87081; 93306; 93970; 94760; 96365; 96375; 97110; 97116; 97162; 97530; 99285; G0378; J1100; J1644; J1650; J1956; J2270; J7030